=== PATIENT | male | born 1985 | race Caucasian/White ===

== ENCOUNTER 2016-09-05 13:34 | Observation (INO) | payer BC, MEDICAID ==
[2016-09-05] MEDS ORDERED: 0.9 % SODIUM CHLORIDE 1000ML 1,000 ML IV ONE (13:56)
[2016-09-05] MEDS ORDERED: ONDANSETRON HCL IV 4 MG/2 ML VIAL IVP ONE (13:56)
--- NOTE | 2016-09-05 13:58 | Emergency Department Record ---
History of Present Illness - General Chief Complaint: Seizures Stated Complaint: SEZURE Time Seen by Provider: 09/05/16 13:57 Source: Patient, Family Mode of Arrival: Stretcher Limitations: No limitations - History of Present Illness Initial Comments: The patient was at home with his and had a possible seizure. He was standing and then developed a blank stare over his face, and then started to fall. His did catch him minimally but he did hit his head mildly. He then had shaking of his arms for a few minutes. The patient did very minimally bite his tongue but was not incontinent. He then woke up and was talking to the when EMS arrived and did not have any post-ictal symptoms. The patient does not remember the events leading up to the event and then did remember EMS being there. The patient has no hx of seizures but is on multiple psych. medicines. He also has been on Tramadol for the last few months due to chronic back pain. MD Complaint: Possible seizure Onset/Timin -: Minutes(s) Description of Episode: Post-event confusion, Tonic-clonic movement Place: Home Associated Symptoms: Other Treatments Prior to Arrival: None - Related Data Allergies Allergy/AdvReac Type Severity Reaction Status Date / Time codeine Allergy HIVES Unverified 06/27/16 16:53 Travel Screening - Travel/Exposure Within Last 30 Days Have you traveled within the last 30 days?: No - Travel/Exposure Within Last Year Have you traveled outside the [place] in the last year?: No - Additonal Travel Details Have you been exposed to anyone with a communicable illness?: No - Travel Symptoms Symptom Screening: None Review of Systems Constitutional: Denies: Chills, Fever Eyes: Denies: Eye discharge ENT: Denies: Congestion Respiratory: Denies: Cough, Dyspnea Past Medical History - SOCIAL HISTORY Smoking Status: Current every day smoker - RESPIRATORY Hx Respiratory Disorders: No - CARDIOVASCULAR Hx Cardio Disorders: No - NEURO Hx Neuro Disorders: No - GI Hx GI Disorders: No - Hx Genitourinary Disorders: No - ENDOCRINE Hx Endocrine Disorders: No - MUSCULOSKELETAL Hx Musculoskeletal Disorders: Yes - PSYCH Hx Psych Problems: No - HEMATOLOGY/ONCOLOGY Hx Hematology/Oncology Disorders: No Family Medical History Any Significant Family History?: No Hx Alcohol Use: Father, Mother, Grandparents Hx Diabetes: Mother, Grandparents Hx Heart Disease: Father, Grandparents Physical Exam - General General Appearance: Alert, Oriented x3, Cooperative, No acute distress - Head Head exam: Atraumatic, Normocephalic, Normal inspection - Eye Eye exam: Normal appearance, PERRL - ENT ENT exam: Normal exam, Mucous membranes moist, Normal external ear exam, Normal orophraynx, TM's normal bilaterally - Neck Neck exam: Normal inspection - Respiratory Respiratory exam: Normal lung sounds bilaterally. negative: Respiratory distress - Cardiovascular Cardiovascular Exam: Regular rate, Normal rhythm, Normal heart sounds - GI/Abdominal GI/Abdominal exam: Soft, Normal bowel sounds. negative: Tenderness - Extremities Extremities exam: Normal inspection, Full ROM, Normal capillary refill. negative: Tenderness - Neurological Neurological exam: Alert, Normal gait, Oriented X3. negative: Abnormal gait, Motor sensory deficit Course Vital Signs 09/05/16 13:37 Temperature 98.0 F Pulse Rate 124 H Respiratory 20 Rate Blood Pressure 145/89 - Reevaluation(s) Reevaluation #1: The patient is doing well. He denies any pain or discomfort. I did discuss the lab results with the patient and and do believe the Tramadol could be causing the problem. 09/05/16 15:42 Reevaluation #2: The patient is resting comfortably. He denies any pain or discomfort. There has been no further seizure activity. 09/05/16 16:57 Reevaluation #3: The patient is doing very well at this time. He denies any pain or discomfort. I did discuss the case with Dr. Tamayo and she does agree to admit him to the hospital overnight to monitor further. 09/05/16 17:22 Medical Decision Making - Data Complexity MDM Data: Labs Ordered and/or Reviewed, X-Ray Ordered and/or Reviewed, EKG Ordered and/or Reviewed - Lab Data Result diagrams: 09/05/16 13:25 09/05/16 13:25 - EKG Data -: EKG Interpreted by Me EKG: No Acute Changes, Normal EKG - Radiology Data Radiology results: Report reviewed (Head CT: Neg for any acute changes.) Disposition Disposition: Admit Clinical Impression: New onset seizure Disposition: Still a Patient at [facility] Decision to Admit: Admit from ER Decision to Admit Date: 09/05/16 Decision to Admit Time: 17:23 Accepting Physician: Belkis Time Discussed w/Accepting Physician: 17:23 Condition: (2) Stable Forms: Patient Portal Access Time of Disposition: 17:23
[2016-09-05] MEDS ORDERED: 0.9 % SODIUM CHLORIDE 1,000 ML BAG IV ONE ×2 (14:10→14:38)
[2016-09-05 14:19] LABS: BASO % 0.2 % (0-6); EOS % 2.5 % (0-6); GRAN % 61.9 % (47-80); HEMATOCRIT 47.8 % (42.0-52.0); HEMOGLOBIN 15.3 gm/dl (14.0-18.0); LYMPH % 25.2 % (16-45); MEAN CELL VOLUME 95.2 fl (81-97); MEAN CORPUSCULAR HEMOGLOBIN 30.5 pg (27-33); MEAN PLATELET VOLUME 11.8 fl (7.4-10.4); MONO % 10.2 % (0-9); PLATELET COUNT 338 K/uL (130-400); RED BLOOD COUNT 5.02 M/uL (4.40-5.70); RED CELL DISTRIBUTION WIDTH 13.2 % (11.5-14.5); WHITE BLOOD COUNT W/O DIFF 17.7 K/uL (4.2-12.2)
[2016-09-05 14:32] LABS: ALB/GLOB RATIO 1.9 (1.1-1.8); ALBUMIN 5.4 gm/dL (3.5-5.0); ALKALINE PHOSPHATASE 88 U/L (38-126); ALT/SGPT 19 U/L (21-72); ANION GAP 28.6 (7-16); AST/SGOT 38 U/L (17-59); BILIRUBIN,TOTAL 0.51 mg/dL (0.2-1.3); BLOOD UREA NITROGEN 5 mg/dL (9-20); CARBON DIOXIDE 16.4 mmol/L (22-30); CREATINE PHOSPHOKINASE 742 U/L (55-170); EST GLOMERULAR FILTRATION RATE > 60 ml/min; GLUCOSE,RANDOM 114 mg/dL (70-110); TOTAL PROTEIN 8.3 gm/dL (6.3-8.2)
[2016-09-05] MEDS ORDERED: POTASSIUM CHLORIDE 20 MEQ TABLET PO ONE (14:37)
[2016-09-05 15:00] LABS: URINE APPEARANCE CLEAR; URINE BILIRUBIN NEGATIVE (NEGATIVE); URINE BLOOD NEGATIVE (NEGATIVE); URINE COLOR YELLOW; URINE GLUCOSE (UA) NEGATIVE (NEGATIVE); URINE KETONE NEGATIVE (NEGATIVE); URINE LEUKOCYTE ESTERASE NEGATIVE (NEGATIVE); URINE NITRITE NEGATIVE (NEGATIVE); URINE PROTEIN NEGATIVE (NEGATIVE); URINE UROBILINOGEN 0.2 E.U./dL (0.20 - 1.00)
[2016-09-05 15:03] LABS: AMPHETAMINE SCREEN URINE NOT DETECTED; BARBITURATE SCREEN URINE NOT DETECTED; BENZODIAZEPINE SCREEN URINE NOT DETECTED; COCAINE SCREEN URINE NOT DETECTED; METHADONE SCREEN URINE NOT DETECTED; METHAMPHETAMINE SCREEN NOT DETECTED; OPIATE SCREEN URINE NOT DETECTED; OXYCODONE SCREEN URINE NOT DETECTED; PHENCYCLIDINE SCREEN URINE NOT DETECTED; PROPOXYPHENE SCREEN URINE NOT DETECTED; THC SCREEN URINE NOT DETECTED; TRICYCLIC ANTIDEPRESSANT SCRN NOT DETECTED
[2016-09-05] MEDS ORDERED: LORAZEPAM 2 MG/ML VIAL IV ONE ×2 (16:19→18:34)
[2016-09-05 17:02] LABS: ACETAMINOPHEN < 10.0 ug/mL (10.0-30.0); SALICYLATE < 1.0 mg/dL (2.8-20.0)
[2016-09-05] MEDS ORDERED: ACETAMINOPHEN 500 MG TABLET PO PRN (18:34)
[2016-09-05] MEDS ORDERED: 0.9 % SODIUM CHLORIDE 1000ML 1,000 ML IV PRN (18:34)
[2016-09-05] MEDS ORDERED: IBUPROFEN 600 MG TABLET PO PRN (18:34)
[2016-09-05] MEDS ORDERED: ARIPIPRAZOLE 5 MG PO SCH (18:34)
[2016-09-05] MEDS ORDERED: ESCITALOPRAM 10 MG TABLET PO SCH (18:34)
[2016-09-05] MEDS: 0.45% SODIUM CHLORIDE 1,000 ML IV SCH (18:58)
[2016-09-05] MEDS ORDERED: RISPERIDONE 2 MG PO SCH (22:00)
[2016-09-06] MEDS: 0.45% SODIUM CHLORIDE 1,000 ML IV SCH ×2 (03:08→12:00)
[2016-09-06 06:47] LABS: BASO % 0.3 % (0-6); EOS % 5.7 % (0-6); GRAN % 50.5 % (47-80); HEMATOCRIT 40.8 % (42.0-52.0); HEMOGLOBIN 13.2 gm/dl (14.0-18.0); LYMPH % 30.6 % (16-45); MEAN CELL VOLUME 94.9 fl (81-97); MEAN CORPUSCULAR HEMOGLOBIN 30.6 pg (27-33); MEAN CORPUSCULAR HGB CONC 32.4 g/dl (32-36); MEAN PLATELET VOLUME 11.3 fl (7.4-10.4); MONO % 12.9 % (0-9); PLATELET COUNT 263 K/uL (130-400); RED CELL DISTRIBUTION WIDTH 13.1 % (11.5-14.5); WHITE BLOOD COUNT W/O DIFF 7.9 K/uL (4.2-12.2)
[2016-09-06 06:58] LABS: ALB/GLOB RATIO 1.4 (1.1-1.8); ALBUMIN 3.7 gm/dL (3.5-5.0); ALKALINE PHOSPHATASE 75 U/L (38-126); ALT/SGPT 33 U/L (21-72); ANION GAP 7.7 (7-16); AST/SGOT 20 U/L (17-59); BLOOD UREA NITROGEN 5 mg/dL (9-20); CARBON DIOXIDE 27.3 mmol/L (22-30); CREATININE 0.8 mg/dL (0.66-1.25); EST GLOMERULAR FILTRATION RATE > 60 ml/min; GLUCOSE,RANDOM 81 mg/dL (70-110); TOTAL PROTEIN 6.3 gm/dL (6.3-8.2)
--- NOTE | 2016-09-06 07:22 | CT SCAN REPORT ---
EXAM: HEAD CT WITHOUT CONTRAST HISTORY: SYNCOPE, NEW ONSET SEIZURE. TECHNIQUE: Contiguous axial images from the cerebral convexities to the foramen magnum were obtained without contrast. Comparison: None. Encounter: Initial. Hand dominance: Right. FINDINGS: The brain volume is normal. No acute intracranial hemorrhage, mass effect, or midline shift. No CT evidence of acute infarct. The ventricles, basal cisterns, and sulci are within normal limits. Mild mucosal thickening right sphenoid sinus. The osseous structures and soft tissues are unremarkable. IMPRESSION: 1. NO ACUTE INTRACRANIAL PROCESS. 2. MILD MUCOSAL THICKENING RIGHT SPHENOID SINUS. JOB NUMBER: [id number] [facility]
[2016-09-06] MEDS ORDERED: ARIPIPRAZOLE 5 MG PO SCH (10:00)
[2016-09-06] MEDS ORDERED: ESCITALOPRAM 10 MG TABLET PO SCH (10:00)
[2016-09-06] MEDS ORDERED: LORAZEPAM 2 MG/ML VIAL IV PRN (10:06)
--- NOTE | 2016-09-06 10:57 | History & Physical ---
History of Present Illness - Date of Service Date of Service for History & Physical: 09/06/16 - History of Present Illness Admitting Diagnosis: 1. New Onset Seizure History of Present Illness: 30 y/o male with CC seizure-like activity admitted for possible seizure. PMX: Bipolar disorder, chronic low back pain, 1.5 PPD smoker. Prior to arrival to [facility] [place] ED patient reported going outside for a cigarette, feeling shaky, "wide-eyed", and dizzy and next thing he remembered was waking up in the ambulance and arriving to the ED. was home at that time, reports he developed a blank stare and began to fall. The caught him but reports he did hit his head lightly on the ground. After being on the ground began having shaking of his arms for a few minutes. Spontaneously woke but did not remember any events surrounding seizure event. No previously reported history of seizures. Currently takes Abilify, Risperdal, Lexapro for "anger, anxiety and depression" . has been on these medications for "years" and has never had any adverse reaction. Has been taking Tramadol for low back pain which is chronic "spinal disc disease", not caused by injury or accident. 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 Low back pain radiates down left buttock and leg, denies weakness, falling, loss of B/B function. Denies recent illness, diarrhea, nausea, illicit drug use. Last saw Dahlia at [facility] 3-4 months ago and was recently discharged from the practice 2 weeks ago for not following up frequently enough. While in the ED WBC 17.1, NA 149, K 3.1, CO 16.4, Anion Gap 28.6, CK 742, U/A neg, toxicology negative4, EKg NSR, Head CT no acute intracranial process. Given 0.9% NS wideopen x 2 liters, Klor-Con 40meq x 1. No further seizures after arriving to ED. Admitted to OBS for further IVF, lab monitoring and seizure monitoring. 09/06- Observed resting in bed comfortably. Denies complaint. Still does not recall seizure-like activity but does recall events just prior to reported seizure event and waking in the ambulance. No report of seizure activity since being admitted to the floor. PCP: Dr Belkis Pain Management: [facility] Psychotherapist: Dahlia robbins [employer] Reviewed (is unable to recall last name or credentials) Travel Screening - Travel/Exposure Within Last 30 Days Have you traveled within the last 30 days?: No - Travel/Exposure Within Last Year Have you traveled outside the [place] in the last year?: No - Additonal Travel Details Have you been exposed to anyone with a communicable illness?: No - Travel Symptoms Symptom Screening: None Review of Systems Constitutional: Denies: Chills, Fever Eyes: Denies: Eye discharge ENT: Denies: Congestion Respiratory: Denies: Cough, Dyspnea Past Medical History - SOCIAL HISTORY Smoking Status: Current every day smoker Alcohol Use: None Drug Use: None - RESPIRATORY Hx Respiratory Disorders: No - CARDIOVASCULAR Hx Cardio Disorders: No - NEURO Hx Neuro Disorders: No - GI Hx GI Disorders: No - Hx Genitourinary Disorders: No - ENDOCRINE Hx Endocrine Disorders: No - MUSCULOSKELETAL Hx Musculoskeletal Disorders: Yes - PSYCH Hx Psych Problems: No - HEMATOLOGY/ONCOLOGY Hx Hematology/Oncology Disorders: No Family Medical History Any Significant Family History?: No Hx Alcohol Use: Father, Mother, Grandparents Hx Diabetes: Mother, Grandparents Hx Heart Disease: Father, Grandparents H&P Meds/Allergies - Allergies Allergies: Allergies Allergy/AdvReac Type Severity Reaction Status Date / Time codeine Allergy HIVES Verified 09/05/16 21:09 - Active Medications Active Medications: Current Medications Acetaminophen (Tylenol 500mg Tab) 500 mg PO Q4H PRN PRN Reason: PAIN/TEMP Escitalopram Oxalate (Lexapro) 20 mg PO DAILY UMER Last Admin: 09/06/16 10:29 Dose: 20 mg Sodium Chloride (0.45% Sodium Chloride) 1,000 mls @ 125 mls/hr IV .Q8H UMER Last Admin: 09/06/16 03:08 Dose: 125 mls/hr Ibuprofen (Motrin 600mg) 600 mg PO Q8H PRN PRN Reason: Analgesia Lorazepam (Ativan) 1 mg IV BID PRN PRN Reason: SEIZURE Patient Own Med: (Aripiprazole 5 Mg) 1 each PO DAILY UMER Risperidone (Risperadol) 2 mg PO QHS [facility] Physical Exam - Vital Signs Vital Signs: Vital Signs - Last 24 Hrs Temp Pulse Pulse Pulse Resp BP BP 09/06/16 08:45 20 09/06/16 08:21 97.9 F 85 16 131/85 09/06/16 06:40 97.6 F 81 16 134/79 09/06/16 01:30 98.2 F 81 12 131/79 09/05/16 21:06 98.5 F 85 16 127/72 09/05/16 21:00 70 16 09/05/16 18:31 106 H 16 140/95 09/05/16 18:30 97.6 F 76 16 143/85 Pulse Ox 09/06/16 08:45 09/06/16 08:21 97 09/06/16 06:40 96 09/06/16 01:30 96 09/05/16 21:06 97 09/05/16 21:00 09/05/16 18:31 98 09/05/16 18:30 93 L - General General Appearance: Alert, Oriented x3, Cooperative, No acute distress Limitations: No limitations - Head Head exam: Atraumatic, Normocephalic, Normal inspection Head exam detail: negative: Abrasion, Contusion, General tenderness, Hematoma - Eye Eye exam: Normal appearance, PERRL, EOMI. negative: Periorbital swelling, Scleral icterus - ENT ENT exam: Normal exam, Mucous membranes moist, Normal external ear exam, Normal orophraynx, TM's normal bilaterally - Neck Neck exam: Normal inspection - Respiratory Respiratory exam: Normal lung sounds bilaterally. negative: Respiratory distress - Cardiovascular Cardiovascular Exam: Regular rate, Normal rhythm, Normal heart sounds - GI/Abdominal GI/Abdominal exam: Soft, Normal bowel sounds. negative: Tenderness - Extremities Extremities exam: Normal inspection, Full ROM, Normal capillary refill. negative: Tenderness - Back Back exam: Reports: Normal inspection, Full ROM - Neurological Neurological exam: Alert, Normal gait, Oriented X3. negative: Abnormal gait, Motor sensory deficit Results - Labs Result Diagrams: 09/06/16 06:05 09/06/16 06:05 Labs Last 24 Hours: Laboratory Results - last 24 hr 09/06/16 09/06/16 06:05 06:05 WBC 7.9 RBC 4.30 L Hgb 13.2 L Hct 40.8 L MCV 94.9 MCH 30.6 MCHC 32.4 RDW 13.1 Plt Count 263 MPV 11.3 H Gran % 50.5 Lymphocytes % 30.6 Monocytes % 12.9 H Eosinophils % 5.7 Basophils % 0.3 Sodium 142 Potassium 3.8 Chloride 107 Carbon Dioxide 27.3 Anion Gap 7.7 BUN 5 L Creatinine 0.8 Estimated GFR > 60 Random Glucose 81 Calcium 8.5 Total Bilirubin 0.30 AST 20 ALT 33 Alkaline Phosphatase 75 Total Protein 6.3 Albumin 3.7 Globulin 2.6 Albumin/Globulin Ratio 1.4 - Imaging and Cardiology CT scan - head Status: Report reviewed (No acute intracranial process) VTE H&P Assessment - Risk for VTE Risk for VTE: Yes Risk Level: Low Risk Assessment Date: 09/06/16 Risk Assessment Time: 11:44 VTE Orders Placed or Will Be Placed: Yes Plan - Detailed Diagnosis and Plan (1) New onset seizure Current Visit: Yes Status: Acute Base Code: R56.9 - UNSPECIFIED CONVULSIONS Comment: 09/06- new onset seizure x 1, no family hx, no previous hx. CT head negative for intracranial process. Clinical picture of hemoconcentration of admit WBC 17.7 in the absence of fever, complain of recent or current illness, Na 149, Anion Gap 28.6 witn normalizaiton of these values this am after 0.9NS wideopen x 2 liters and 0.45% NS @ 125ml/hr continuous infusion. K 3.1 in Ed, Klor-Con 40 mEq x 1 in ED with normalization this am. UA negative, tox screen negative. CK 742. EKG NSR. No further seizure-like activity since arrival to ED or since admission to the floor. Likely etiology medication based. - plan to DC home later today should he remain seizure-free - need ROMMEL referral to Neurology - no driving until cleared by Neurology - follow up with PCP in 1 week - follow up with [facility] in 1 week to discuss pain management (2) Electrolyte disturbance Current Visit: Yes Status: Acute Base Code: E87.8 - OTH DISORDERS OF ELECTROLYTE AND FLUID BALANCE, NEC (3) Leukocytosis Current Visit: Yes Status: Acute Base Code: D72.829 - ELEVATED WHITE BLOOD CELL COUNT, UNSPECIFIED Comment: 09/06- see above for details (4) Full code status Current Visit: Yes Status: Acute Base Code: Z78.9 - OTHER SPECIFIED HEALTH STATUS Comment: 09/06- will remain full code during this hospitalzation (5) DVT prophylaxis Current Visit: Yes Status: Acute Base Code: [id number] - Comment: 09/06- nursing to encourage frequent ambulation
--- NOTE | 2016-09-06 15:43 | Discharge Summary ---
Providers Discharge Summary Date: 09/06/16 Date of admission: 09/05/16 18:21 Expected Date of Discharge: 09/06/16 Attending physician: TENZIN AMATO Primary care physician: TENZIN AMATO Physical Exam - Vital Signs Vital Signs: Vital Signs - Last 24 Hrs Temp Pulse Pulse Pulse Resp BP BP 09/06/16 11:22 98.1 F 93 H 14 133/83 09/06/16 08:45 20 09/06/16 08:21 97.9 F 85 16 131/85 09/06/16 06:40 97.6 F 81 16 134/79 09/06/16 01:30 98.2 F 81 12 131/79 09/05/16 21:06 98.5 F 85 16 127/72 09/05/16 21:00 70 16 09/05/16 18:31 106 H 16 140/95 09/05/16 18:30 97.6 F 76 16 143/85 Pulse Ox 09/06/16 11:22 98 09/06/16 08:45 09/06/16 08:21 97 09/06/16 06:40 96 09/06/16 01:30 96 09/05/16 21:06 97 09/05/16 21:00 09/05/16 18:31 98 09/05/16 18:30 93 L - General General Appearance: Alert, Oriented x3, Cooperative, No acute distress Limitations: No limitations - Head Head exam: Atraumatic, Normocephalic, Normal inspection Head exam detail: negative: Abrasion, Contusion, General tenderness, Hematoma - Eye Eye exam: Normal appearance, PERRL, EOMI. negative: Periorbital swelling, Scleral icterus - ENT ENT exam: Normal exam, Mucous membranes moist, Normal external ear exam, Normal orophraynx, TM's normal bilaterally - Neck Neck exam: Normal inspection - Respiratory Respiratory exam: Normal lung sounds bilaterally. negative: Respiratory distress - Cardiovascular Cardiovascular Exam: Regular rate, Normal rhythm, Normal heart sounds - GI/Abdominal GI/Abdominal exam: Soft, Normal bowel sounds. negative: Tenderness - Extremities Extremities exam: Normal inspection, Full ROM, Normal capillary refill. negative: Tenderness - Back Back exam: Reports: Normal inspection, Full ROM - Neurological Neurological exam: Alert, Normal gait, Oriented X3. negative: Abnormal gait, Motor sensory deficit Hospitalization - Hospitalization Admission Diagnosis: 1. New Onset Seizure - Problem List/Discharge Diagnosis (1) New onset seizure Current Visit: Yes Status: Acute Base Code: R56.9 - UNSPECIFIED CONVULSIONS Comment: 09/06- new onset seizure x 1, no family hx, no previous hx. CT head negative for intracranial process. Clinical picture of hemoconcentration of admit WBC 17.7 in the absence of fever, complain of recent or current illness, Na 149, Anion Gap 28.6 witn normalizaiton of these values this am after 0.9NS wideopen x 2 liters and 0.45% NS @ 125ml/hr continuous infusion. K 3.1 in Ed, Klor-Con 40 mEq x 1 in ED with normalization this am. UA negative, tox screen negative. CK 742. EKG NSR. No further seizure-like activity since arrival to ED or since admission to the floor. Likely etiology medication based. - has remained seizure-free since ED visit and admit to floor - need ROMMEL referral to Neurology- referral sent - no driving until cleared by Neurology - follow up with PCP in 1 week - follow up with [facility] in 1 week to discuss pain management - advised to stop Tramadol immediately (2) Electrolyte disturbance Current Visit: Yes Status: Acute Base Code: E87.8 - OTH DISORDERS OF ELECTROLYTE AND FLUID BALANCE, NEC (3) Leukocytosis Current Visit: Yes Status: Acute Base Code: D72.829 - ELEVATED WHITE BLOOD CELL COUNT, UNSPECIFIED Comment: 09/06- see above for details (4) Full code status Current Visit: Yes Status: Acute Base Code: Z78.9 - OTHER SPECIFIED HEALTH STATUS Comment: 09/06- will remain full code during this hospitalzation (5) DVT prophylaxis Current Visit: Yes Status: Acute Base Code: [id number] - Comment: 09/06- nursing to encourage frequent ambulation - Hospitalization Course Disposition: Home, Self-Care Hospital Course: 30 y/o male with CC seizure-like activity admitted for possible seizure. PMX: Bipolar disorder, chronic low back pain, 1.5 PPD smoker. Prior to arrival to [facility] ED patient reported going outside for a cigarette, feeling shaky, "wide-eyed", and dizzy and next thing he remembered was waking up in the ambulance and arriving to the ED. was home at that time, reports he developed a blank stare and began to fall. The caught him but reports he did hit his head lightly on the ground. After being on the ground began having shaking of his arms for a few minutes. Spontaneously woke but did not remember any events surrounding seizure event. No previously reported history of seizures. Currently takes Abilify, Risperdal, Lexapro for "anger, anxiety and depression" . has been on these medications for "years" and has never had any adverse reaction. Has been taking Tramadol for low back pain which is chronic "spinal disc disease", not caused by injury or accident. 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 Low back pain radiates down left buttock and leg, denies weakness, falling, loss of B/B function. Denies recent illness, diarrhea, nausea, illicit drug use. Last saw Dahlia at [facility] 3-4 months ago and was recently discharged from the practice 2 weeks ago for not following up frequently enough. While in the ED WBC 17.1, NA 149, K 3.1, CO 16.4, Anion Gap 28.6, CK 742, U/A neg, toxicology negative4, EKg NSR, Head CT no acute intracranial process. Given 0.9% NS wideopen x 2 liters, Klor-Con 40meq x 1. No further seizures after arriving to ED. Admitted to OBS for further IVF, lab monitoring and seizure monitoring. 09/06- Observed resting in bed comfortably. Denies complaint. Still does not recall seizure-like activity but does recall events just prior to reported seizure event and waking in the ambulance. No report of seizure activity since being admitted to the floor. PCP: Dr Tamayo Pain Management: [facility] Psychotherapist: Dahlia at [facility] (is unable to recall last name or credentials) Abnormal Labs: Abnormal Lab Results 09/06/16 09/06/16 Range/Units 06:05 06:05 RBC 4.30 L (4.40-5.70) M/uL Hgb 13.2 L (14.0-18.0) gm/dl Hct 40.8 L (42.0-52.0) % MPV 11.3 H (7.4-10.4) fl Monocytes % 12.9 H (0-9) % BUN 5 L (9-20) mg/dL Condition at Discharge: (2) Stable Discharge Medications - Discharge Medications Prescriptions: Ibuprofen [Motrin 600Mg] 600 mg PO Q8H PRN #90 tablet PRN Reason: Analgesia Home Medications: Ambulatory Orders Acetaminophen [Tylenol 500Mg Tab] 500 mg PO Q4H PRN #0 tablet 09/06/16 [Last Taken Unknown] Ibuprofen [Motrin 600Mg] 600 mg PO Q8H PRN #90 tablet 09/06/16 [Last Taken Unknown] Discharge Plan - Discharge Instructions Activity at Discharge: Increase Activity as Tolerated, Return To Work Once Cleared By Your PCP/Specialist Diet at Discharge: Regular Diet Additional Instructions: 1- NO driving until cleared by Neurologist 2- A referral was sent to Neurology for consultation, please follow up with Neurology office Friday if you have not been contacted for an appointment 3- Stop smoking 4- DO NOT take Tramadol, may use Motrin as prescribed for pain until you see your industrial painter to reevaluate pain treatment regimen 5- Follow up with PCP in 1 week
[2016-09-06] MEDS ORDERED: RISPERIDONE 1 MG TABLET PO SCH (22:00)
== END 2016-09-06 17:23 | disposition home or self-care (01) ==
LOC: ER 13:34 → MEDSURG 18:21
PROVIDERS: ADMIT Family Medicine; ATTEND Family Medicine
DX: R56.9 Unspecified convulsions (principal); E87.8 Other disorders of electrolyte and fluid balance, not elsewhere classified; D72.829 Elevated white blood cell count, unspecified; Z78.9 Other specified health status; Z79.899 Other long term (current) drug therapy; F17.200 Nicotine dependence, unspecified, uncomplicated
CPT/HCPCS: 70450; 80053; 80305; 80329; 81003; 82550; 85025; 96361; 96374; 96375; 99220; 99285; J2405; J7030

== ENCOUNTER 2016-09-05 13:35 | Emergency (ER) | payer MEDICAID, BC | END 2016-09-05 13:57 | disposition left against medical advice (07) | LOC: ER 13:35 | DX: Z53.09 Procedure and treatment not carried out because of other contraindication (principal) | CPT/HCPCS: 93005; 93010 ==